=== PATIENT | female | born 1960 | race Caucasian/White ===

== ENCOUNTER 2021-09-05 12:35 | Emergency (ER) | payer OTHER, SELFPAY ==
[2021-09-05] VITALS (8 sets, daily range): BP systolic 93–164; BP diastolic 57–92; PULSE 69–78; RESP 15–21; TEMP 36.5; O2SAT 95–99; BMI 29.7
--- NOTE | 2021-09-05 14:29 | EX.ED.DYSGE1 ---
HPI History of Present Illness Chief Complaint: Wound Informant: patient Narrative Narrative: Patient is not the best informant for details of her history. However, it sounds like she has had a nonalcoholic cirrhosis for some years. She had 1 paracentesis sometime in the past. Her primary physician arranged another one that was done Wednesday. Patient states she has not seen a registered radiographer or GI doctor in a long time. She states she had the paracentesis on Wednesday and they took 8 bottles off and sent her home. I do not know if she got albumin. She felt fine. This morning she was eating breakfast in her house. She heard the water running and then realized it was her abdomen leaking fluid. She still states she feels fine. There was a note I believe in the chart about being short of breath but she denies this. EMS got a blood pressure that was low but we have done many blood pressures here and they have been normal. Patient does not have symptoms that match hypotension. The only reason she called is the fluid leaking. She has not had this before. The fluid is not leaking from paracentesis site. It is leaking from her umbilicus. No fevers or chills. [facility] Medical History Congestive heart failure (CHF) COPD (chronic obstructive pulmonary disease) Diabetes Hypertension Home Medications Omeprazole [Prilosec] 40 mg PO DAILY 02/12/14 [History Last Taken Unknown] amitriptyline 25 mg PO BID 02/12/14 [History Last Taken Unknown] aspirin 81 mg PO DAILY@79902/12/14 [History Last Taken 02/13/14] atorvastatin 80 mg PO QHS 02/12/14 [History Last Taken Unknown] folic acid 1 mg PO DAILY@79902/12/14 [History Last Taken Unknown] furosemide 20 mg PO DAILY 02/12/14 [History Last Taken Unknown] glimepiride 4 mg PO BID 02/12/14 [History Last Taken Unknown] insulin aspart U-100 [Novolog Flexpen] 0 units SUBCUT BIDCM 02/12/14 [History Last Taken Unknown] insulin glargine [Lantus SoloStar Pen] 0 units SUBCUT QHS 02/12/14 [History Last Taken Unknown] lisinopril 20 mg PO DAILY 02/12/14 [History Last Taken 02/13/14] metformin 1,000 mg PO BIDCM 02/12/14 [History Last Taken Unknown] methotrexate sodium 12.5 mg PO Q7D 02/12/14 [History Last Taken Unknown] metoprolol succinate 50 mg PO DAILY 02/12/14 [History Last Taken 02/13/14] potassium chloride 10 meq PO DAILY 02/12/14 [History Last Taken Unknown] sertraline 150 mg PO DAILY 02/12/14 [History Last Taken Unknown] zolpidem [Ambien] 10 mg PO DAILY 02/12/14 [History Last Taken Unknown] carvedilol 6.25 mg PO BID 09/05/21 [History Last Taken Unknown] clopidogrel 75 mg PO DAILY 09/05/21 [History Last Taken Unknown] ferrous sulfate 325 mg PO QODAY 09/05/21 [History Last Taken Unknown] losartan 12.5 mg PO DAILY 09/05/21 [History Last Taken Unknown] venlafaxine 75 mg PO DAILY 09/05/21 [History Last Taken Unknown] Allergy/AdvReac Type Severity Reaction Status Date / Time albuterol sulfate Allergy Unknown Verified 02/12/14 13:35 [From ProAir HFA] Iodinated Contrast Media Allergy Rash Verified 02/13/14 09:11 Social History Smoking Status: Current every day smoker tobacco type: cigarettes ROS ROS ED Constitutional Constitutional ED: Denies chills, fever(s) or subjective Eyes Eyes: Denies blurry vision ENT ENT ED: Denies rhinorrhea Cardiovascular Cardiovascular: Denies chest pain Respiratory/Chest Respiratory/Chest: Denies cough or dyspnea Gastrointestinal Gastrointestinal: Reports other Details: See history of present illness. ; Denies abdominal pain, diarrhea, nausea or vomiting Genitourinary Genitourinary ED: Denies dysuria Musculoskeletal Musculoskeletal: Denies myalgias Integumentary Denies rash Neurologic Neurologic: Denies headache(s) Endocrine Endocrinology: Denies polydipsia or polyuria Allergic/Immunologic Allergic/Immunologic ED: Denies mouth swelling or urticaria EXAM Physical Exam Const Vital Signs: 09/05/21 12:36 09/05/21 12:58 09/05/21 13:01 Temperature 97.7 F L Temperature Source Oral Pulse Rate 72 73 Respiratory Rate 20 H 21 H Blood Pressure 116/57 L 115/70 131/65 H Blood Pressure Mean 76 85 87 Pulse Ox 99 99 Oxygen Delivery Method Room Air Room Air 09/05/21 14:20 09/05/21 15:00 09/05/21 16:00 Temperature Temperature Source Pulse Rate 71 69 75 Respiratory Rate 16 19 H 19 H Blood Pressure 128/61 H 93/59 L 113/58 L Blood Pressure Mean 83 70 76 Pulse Ox 97 95 99 Oxygen Delivery Method Room Air Room Air Room Air 09/05/21 18:00 Temperature Temperature Source Pulse Rate Respiratory Rate Blood Pressure 164/92 H Blood Pressure Mean 116 Pulse Ox Oxygen Delivery Method Patient is thin. She does have a protuberant abdomen. Positive well nourished and well developed General Appearance ED: well developed HEENT Negative for trauma Eyes EOMs intact bilaterally General Eye ED: Negative for scleral icterus Neck no JVD Chest Wall inspection of chest normal Resp normal respiratory effort and clear to auscultation bilaterally Cardio regular rate and regular rhythm GI GI Narrative: Abdomen is distended. It is not at all tender. No rashes. No rebound guarding. She does have a drainage of ascitic appearing fluid from a very small approximately 1 mm opening in the umbilicus. The umbilicus is slightly protuberant but is not tender. It is not red. There is not significant breakdown. I do not see any blood in the area nor coming from the fluid. Back/Spine no CVA tenderness Extremity normal to inspection Neuro oriented x3 Sensorium / Orientation: alert Psych mental status grossly normal Skin no rashes or lesions noted and no wounds MDM MDM MDM Narrative Medical decision making narrative: I discussed the case with Dr. Montana. He has not seen her in the past. He recommend we try to get a repeat paracentesis as she still has a fair amount of fluid on board. We will give her albumin afterwards. I got blood work pending to check INR and further studies. We are pending all these results. CBC shows mildly low white count. Platelets are normal. Hemoglobin slightly low also. INR is minimally elevated at 1.3. Creatinine is 1.44. Very mild elevation of alkaline phosphatase but normal total bilirubin. We tried to get ultrasound-guided paracentesis today. But were not able to do this. It would be Wednesday before we can get this done. I notify Dr. Montana of this. He is happy to follow-up with the patient. However, before he can order the ultrasound guided paracentesis he has to see the patient. She may be able to get in faster if she contacts the same physician who arranged this for Wednesday. We recommend she contact her primary and have a repeat paracentesis beginning of the week. She is still draining from her small hole in the umbilicus. But she has no symptoms or discomfort. We explained that this will keep draining. I cannot suture this. That would cause likely greater tearing of the wound. Lab Data Attestation: I reviewed the patient's lab results. Labs: Laboratory Results - last 24 hr 09/05/21 09/05/21 09/05/21 14:30 14:30 14:30 WBC 3.8 L RBC 3.66 L Hgb 9.4 L Hct 29.2 L MCV 79.8 L MCH 25.7 L MCHC 32.2 RDW Std Deviation 46.7 H RDW Coeff of Elzbieta 16.4 H Plt Count 172 MPV 9.2 Immature Gran % (Auto) 0.300 Neut % (Auto) 70.8 H Lymph % (Auto) 8.5 L [place] % (Auto) 9.8 Eos % (Auto) 9.8 H Baso % (Auto) 0.8 Absolute Neuts (auto) 2.7 Absolute Lymphs (auto) 0.32 L Nucleated RBC % 0 Differential Comment SEE COMMENT Diff Path Review May foll Platelet Estimate ADEQUATE RBC Morphology N CHROM Hypochromasia 1+ Anisocytosis RARE Microcytosis 1+ PT 15.3 H INR 1.3 Sodium 137 Potassium 3.5 Chloride 103 Carbon Dioxide 29.0 Anion Gap 5 BUN 25 H Creatinine 1.44 H Estim Creat Clear Calc 29.10 Est GFR (MDRD) Af Amer 47 L Est GFR (MDRD) Non-Af 39 L BUN/Creatinine Ratio 17.4 Glucose 247 H Calcium 8.1 L Total Bilirubin 0.30 AST 15 ALT 10 L Alkaline Phosphatase 194 H Total Protein 5.7 L Albumin 1.7 L Globulin 4.0 Albumin/Globulin Ratio 0.4 L Discharge Plan Triage Chief Complaint: Wound ED Provider: Jose Espinoza Dx/Rx/DC Orders Clinical Impression: Ascites Instructions: ED Ascites Prescriptions: No Action metformin 1,000 MG tablet 1,000 mg PO BIDCM RF: 0 aspirin 81 MG tablet,chewable 81 mg PO DAILY@0800 RF: 0 folic acid 1 MG tablet 1 mg PO DAILY@0800 RF: 0 furosemide 20 MG tablet 20 mg PO DAILY RF: 0 potassium chloride 10 MEQ tablet 10 meq PO DAILY RF: 0 metoprolol succinate 50 MG tablet 50 mg PO DAILY RF: 0 lisinopril 20 MG tablet 20 mg PO DAILY RF: 0 sertraline 100 MG tablet 150 mg PO DAILY RF: 0 methotrexate sodium 2.5 MG tablet 12.5 mg PO Q7D RF: 0 glimepiride 4 MG tablet 4 mg PO BID RF: 0 zolpidem [Ambien] 10 MG tablet 10 mg PO DAILY RF: 0 atorvastatin 80 MG tablet 80 mg PO QHS RF: 0 amitriptyline 25 MG tablet 25 mg PO BID RF: 0 insulin aspart U-100 [Novolog Flexpen U-100 Insulin] 100 UNITS/ML Flexpen 0 units subcut BIDCM RF: 0 insulin glargine [Lantus Solostar U-100 Insulin] 100 UNITS/ML Pen 0 units subcut QHS RF: 0 Omeprazole [Prilosec] 40 MG capsule 40 mg PO DAILY RF: 0 carvedilol 6.25 mg tablet 6.25 mg PO BID RF: 0 venlafaxine 75 mg capsule,extended release 24hr 75 mg PO DAILY RF: 0 clopidogrel 75 mg tablet 75 mg PO DAILY RF: 0 ferrous sulfate 325 mg (65 mg iron) tablet 325 mg PO QODAY RF: 0 losartan 25 mg tablet 12.5 mg PO DAILY RF: 0 Primary Care Provider: Amy Reyes Referrals: Amy Reyes DO [Primary Care Provider] - As soon as possible Alan Montana DO [STAFF PHYSICIAN] - As soon as possible Activity Restrictions/Additional Instructions: Call your family doctor Wednesday to get scheduled for repeat paracentesis as soon as possible. We recommend receiving albumin after the procedure. Disposition Disposition: Home, Self Care
[2021-09-05 15:02] LABS: International Normalized Ratio 1.3; Prothrombin Time (Protime)PT. 15.3 SECONDS (11.7-14.9)
[2021-09-05 15:07] LABS: ALB/GLOB Ratio 0.4 RATIO (0.9-2.4); AST(SGOT) 15 U/L (15-37); Alanine Aminotransfer ALT/SGPT 10 U/L (13-56); Albumin, Serum 1.7 g/dL (3.2-5.0); Alkaline Phosphatase 194 U/L (45-117); Anion Gap 5 (5-15); BUN 25 mg/dL (7-18); BUN/Creat Ratio 17.4 RATIO (10-20); Calcium,Total 8.1 mg/dL (8.5-10.1); Chloride 103 mmol/L (98-107); Creatinine, Serum 1.44 mg/dL (0.55-1.02); EST Glomerular Filtration Rate 39 mL/min (>60); Est Glom Filt Rate - Afr Amer 47 mL/min (>60); Glucose 247 mg/dL (74-106); Potassium 3.5 mmol/L (3.5-5.1); Protein, Total 5.7 g/dL (6.4-8.2); Sodium Level 137 mmol/L (136-145)
[2021-09-05 15:32] LABS: Absolute Lymphocyte Count 0.32 X10^3/uL (0.83-4.51); Absolute Neutrophil Count 2.7 X10^3/uL (2.0-7.7); Basophil# 0.03 X10^3/uL; Basophil% 0.8 % (0-1); Eosinophil# 0.37 X10^3/uL; Eosinophils% 9.8 % (0-5); Hematocrit 29.2 % (37-47); Hemoglobin 9.4 g/dL (12.0-15.0); Lymphocyte # 0.32 X10^3/ul (0.83-4.51); Lymphocyte % 8.5 % (19-41); Mean Corp Hgb Conc 32.2 g/dL (32-36); Mean Corpuscular Hgb 25.7 pg (27.0-32.0); Mean Corpuscular Volume 79.8 fL (81-99); Mean Platelet Vol. 9.2 fl (6.2-12.0); Monocyte# 0.37 X10^3/uL; Monocyte% 9.8 % (0-10); NRBC Flagged by Analyzer 0 % (0-5); Neutrophil # 2.67 X10^3/uL (2.7-7.7); Neutrophil % 70.8 % (47-70); POSITIVE DIFFERENTIAL YES; Platelet Count 172 K/mm3 (150-450); RBC Distribution Width CV 16.4 % (11.6-14.6); RBC Distribution Width SD 46.7 fl (35.1-43.9); Red Blood Count 3.66 M/mm3 (4.2-5.4); White Blood Count 3.8 K/mm3 (4.4-11.0)
[2021-09-05 15:33] LABS: Differential Indicated SCAN CRITERIA MET
[2021-09-05 15:55] LABS: Anisocytosis RARE; Hypochromasia 1+; Microcytosis 1+; Platelet Estimate ADEQUATE (ADEQ); Red Cell Morphology N CHROM NORMAL (NORM C&C)
[2021-09-05] MEDS: Albumin Human 25% (100 mL) 25 GM/100 ML BAG IV (17:15)
[2021-09-09 10:14] LABS: Pathologist Review Reviewed
== END 2021-09-05 19:22 | disposition home or self-care (01) ==
PROVIDERS: Emergency Provider Emergency Medicine; PCP Family Medicine; Visit Provider Emergency Medicine
DX: R18.8 Other ascites (principal); K74.60 Unspecified cirrhosis of liver; J44.9 Chronic obstructive pulmonary disease, unspecified; I11.0 Hypertensive heart disease with heart failure; I50.9 Heart failure, unspecified; E11.9 Type 2 diabetes mellitus without complications; Z79.4 Long term (current) use of insulin; F17.210 Nicotine dependence, cigarettes, uncomplicated; Z79.02 Long term (current) use of antithrombotics/antiplatelets; Z79.82 Long term (current) use of aspirin; Z79.84 Long term (current) use of oral hypoglycemic drugs; Z79.899 Other long term (current) drug therapy
CPT/HCPCS: 80048; 80053; 85025; 85610; 96361; 96365; 96366; 99285; J7040; P9047; A4216

== ENCOUNTER 2021-09-09 11:43 | Inpatient (IN) | payer MEDICARE, OTHER, SELFPAY ==
[2021-09-09] VITALS (11 sets, daily range): BP systolic 77–100; BP diastolic 40–58; PULSE 72–82; RESP 16–24; TEMP 36.2–37.3; O2SAT 97–100; BMI 21.9; BMI 22.1
--- NOTE | 2021-09-09 12:18 | EX.ED.DYSGE1 ---
HPI History of Present Illness Chief Complaint: Hypotension Informant: patient Narrative Narrative: Patient presents with low blood pressure. Evidently, physical therapy showed at her house for routine therapy. They noticed that she was leaking ascitic fluid through her umbilicus. They checked blood pressure. It was low so they referred her back in here. Patient states she feels okay. Her only complaint is that she would like some eggs to eat for breakfast. She has not yet eaten. She admits that the fluids been draining all weekend but it seems to be less. She has not had follow-up paracentesis. She denies fevers or chills. She states her abdomen has no pain at all. It had been a little sore when it was distended but it does not hurt now. She denies blood in the fluid. [facility] Medical History Cirrhosis Congestive heart failure (CHF) COPD (chronic obstructive pulmonary disease) Diabetes History of abdominal paracentesis Hypertension Home Medications aspirin 81 mg PO DAILY@0800 02/12/14 [History Last Taken 09/08/21] furosemide 20 mg PO DAILY 02/12/14 [History Last Taken Unknown] carvedilol 6.25 mg PO BID 09/05/21 [History Last Taken 09/08/21] clopidogrel 75 mg PO DAILY 09/05/21 [History Last Taken 09/08/21] ferrous sulfate 325 mg PO QODAY 09/05/21 [History Last Taken 09/07/21] losartan 12.5 mg PO DAILY 09/05/21 [History Last Taken 09/08/21] venlafaxine 75 mg PO DAILY 09/05/21 [History Last Taken 09/08/21] cyanocobalamin (vitamin B-12) 1,000 mcg PO DAILY 09/09/21 [History Last Taken 09/08/21] melatonin 3 mg PO QHS 09/09/21 [History Last Taken 09/08/21] pantoprazole 40 mg PO DAILY 09/09/21 [History Last Taken 09/08/21] quetiapine 50 mg PO QHS 09/09/21 [History Last Taken 09/08/21] spironolactone 25 mg PO DAILY 09/09/21 [History Last Taken 09/08/21] trazodone 100 mg PO QHS 09/09/21 [History Last Taken 09/08/21] Allergy/AdvReac Type Severity Reaction Status Date / Time albuterol sulfate Allergy Unknown Verified 09/09/21 11:44 [From ProAir HFA] Iodinated Contrast Media Allergy Rash Verified 09/09/21 11:44 Family History (Updated 09/09/21 @ 13:[address] Kasi Ahmadi DO) Father Liver disease Social History (Updated 09/09/21 @ 13:[address] Kasi Ahmadi DO) Smoking Status: Current every day smoker tobacco type: cigarettes alcohol intake: never substance use type: does not use ROS ROS ED Constitutional Constitutional ED: Denies chills or fever(s) Eyes Eyes: Denies blurry vision ENT ENT ED: Denies rhinorrhea Cardiovascular Cardiovascular: Denies chest pain or palpitations Respiratory/Chest Respiratory/Chest: Denies cough or dyspnea Gastrointestinal Gastrointestinal: Reports other Details: Drainage of ascitic fluid through umbilicus which has currently stopped. ; Denies abdominal pain, nausea or vomiting Genitourinary Genitourinary ED: Denies dysuria Musculoskeletal Musculoskeletal: Denies back pain Integumentary Denies rash Neurologic Neurologic: Denies headache(s) Endocrine Endocrinology: Denies polydipsia or polyuria Allergic/Immunologic Allergic/Immunologic ED: Denies urticaria EXAM Physical Exam Const Vital Signs: 09/09/21 11:44 09/09/21 11:48 09/09/21 12:59 Temperature 99.2 F H Temperature Source Temporal Pulse Rate 72 76 Respiratory Rate 24 H 20 H Blood Pressure 83/58 L 84/54 L Blood Pressure Mean 66 64 Pulse Ox 99 100 Oxygen Delivery Method Room Air Room Air Room Air 09/09/21 13:04 09/09/21 13:37 Temperature 97.1 F L Temperature Source Temporal Pulse Rate 77 Respiratory Rate 16 Blood Pressure 77/49 L 77/54 L Blood Pressure Mean 58 61 Pulse Ox 100 Oxygen Delivery Method Room Air Positive well nourished and well developed Constitutional Narrative: Patient's blood pressure is a bit low. But she has a mean arterial pressure in the 60s. She is awake alert and appropriate. She does overall look a little bit more pale than she appeared the other day though. However she denies any black or bloody stools. She has not vomited. General Appearance ED: well developed and NAD HEENT Negative for trauma Eyes General Eye ED: Yes pale conjunctiva; Negative for scleral icterus Neck no JVD Chest Wall inspection of chest normal Resp normal respiratory effort and clear to auscultation bilaterally Effort and Inspection: Negative for pain with movement Auscultation: Negative for rales, rhonchi or wheezes Cardio regular rate and regular rhythm GI normal to inspection, nondistended, normoactive bowel sounds GI Narrative: Patient has gauze on him abdomen. However, when I take these down she is currently not leaking fluid. She states this is about the first time. Certainly this may change if she gets up and walks around. I did press on the abdomen. There is no tenderness nor does that encourage fluid to come out. There is no erythema around what was the drainage site. My suspicion is that the size of abdomen has decreased in the fluid is decreasing. Her abdomen does look significantly less distended than when I saw her a few days ago. There is a marked difference in girth. Palpation: soft Back/Spine no CVA tenderness Extremity normal to inspection Neuro oriented x3 Sensorium / Orientation: alert Psych mental status grossly normal Skin no rashes or lesions noted MDM MDM MDM Narrative Medical decision making narrative: Patient is getting some IV fluids here. We will repeat blood work. I want to check status of electrolytes, renal function hemoglobin etc. We will then contact GI. According to the weights from the other day today, the patient has lost 18 kg in weight. I discussed the case with Dr. [place]. Our concern is that the patient has worsening renal function along with significant ascitic fluid loss, weight loss and low blood pressure. However, patient is awake alert and really not symptomatic with this. She is actually eating lunch when I go in the room. Her mean blood pressure is just about 60 for right now. We will get her midodrine, albumin and octreotide as discussed. She will be admitted. Case was discussed with hospitalist. Patient has risk for hepatorenal syndrome development. Hemoglobin is slightly lower. However, she did get IV fluids by EMS and here. Creatinine is slightly worse. Lactic acid is normal despite the blood pressure. Lab Data Attestation: I reviewed the patient's lab results. Labs: Laboratory Results - last 24 hr 09/09/21 09/09/21 09/09/21 11:50 11:50 11:50 WBC 8.4 RBC 3.37 L Hgb 8.3 L Hct 26.1 L MCV 77.4 L MCH 24.6 L MCHC 31.8 L RDW Std Deviation 46.1 H RDW Coeff of Elzbieta 16.4 H Plt Count 180 MPV 9.8 Immature Gran % (Auto) 0.500 Neut % (Auto) 88.1 H Lymph % (Auto) 2.3 L [place] % (Auto) 6.0 Eos % (Auto) 3.0 Baso % (Auto) 0.1 Absolute Neuts (auto) 7.4 Absolute Lymphs (auto) 0.19 L Nucleated RBC % 0 Sodium 133 L Potassium 3.5 Chloride 99 Carbon Dioxide 27.0 Anion Gap 7 BUN 53 H Creatinine 1.86 H Estim Creat Clear Calc 22.53 Est GFR (MDRD) Af Amer 35 L Est GFR (MDRD) Non-Af 29 L BUN/Creatinine Ratio 28.5 H Glucose 135 H Lactic Acid 1.6 Calcium 7.2 L Total Bilirubin 0.80 AST 11 L ALT 9 L Alkaline Phosphatase 158 H Total Protein 4.8 L Albumin 1.3 L Globulin 3.5 Albumin/Globulin Ratio 0.4 L Discharge Plan Triage Chief Complaint: Hypotension ED Provider: Jose Espinoza Dx/Rx/DC Orders Clinical Impression: Ascites, Acute kidney injury, Acute hypotension, Abnormal weight loss Prescriptions: No Action aspirin 81 MG tablet,chewable 81 mg PO DAILY@0800 RF: 0 furosemide 20 MG tablet 20 mg PO DAILY RF: 0 carvedilol 6.25 mg tablet 6.25 mg PO BID RF: 0 venlafaxine 75 mg capsule,extended release 24hr 75 mg PO DAILY RF: 0 clopidogrel 75 mg tablet 75 mg PO DAILY RF: 0 ferrous sulfate 325 mg (65 mg iron) tablet 325 mg PO QODAY RF: 0 losartan 25 mg tablet 12.5 mg PO DAILY RF: 0 cyanocobalamin (vitamin B-12) 1,000 mcg tablet 1,000 mcg PO DAILY RF: 0 melatonin 3 mg tablet 3 mg PO QHS RF: 0 spironolactone 25 mg tablet 25 mg PO DAILY RF: 0 trazodone 100 mg tablet 100 mg PO QHS RF: 0 pantoprazole 40 mg tablet,delayed release (DR/EC) 40 mg PO DAILY RF: 0 quetiapine 50 mg tablet 50 mg PO QHS RF: 0 Primary Care Provider: Amy Reyes Referrals: Amy Reyes DO [Primary Care Provider] - Disposition Disposition: Acute Care Hospital [facility]
[2021-09-09 12:22] LABS: Absolute Lymphocyte Count 0.19 X10^3/uL (0.83-4.51); Absolute Neutrophil Count 7.4 X10^3/uL (2.0-7.7); Basophil# 0.01 X10^3/uL; Basophil% 0.1 % (0-1); Eosinophil# 0.25 X10^3/uL; Hematocrit 26.1 % (37-47); Hemoglobin 8.3 g/dL (12.0-15.0); Lymphocyte # 0.19 X10^3/ul (0.83-4.51); Lymphocyte % 2.3 % (19-41); Mean Corp Hgb Conc 31.8 g/dL (32-36); Mean Corpuscular Hgb 24.6 pg (27.0-32.0); Mean Corpuscular Volume 77.4 fL (81-99); Mean Platelet Vol. 9.8 fl (6.2-12.0); NRBC Flagged by Analyzer 0 % (0-5); Neutrophil % 88.1 % (47-70); POSITIVE DIFFERENTIAL YES; Platelet Count 180 K/mm3 (150-450); RBC Distribution Width CV 16.4 % (11.6-14.6); RBC Distribution Width SD 46.1 fl (35.1-43.9); Red Blood Count 3.37 M/mm3 (4.2-5.4); White Blood Count 8.4 K/mm3 (4.4-11.0)
[2021-09-09 12:24] LABS: Differential Indicated SCAN CRITERIA MET
[2021-09-09 12:42] LABS: ALB/GLOB Ratio 0.4 RATIO (0.9-2.4); AST(SGOT) 11 U/L (15-37); Alanine Aminotransfer ALT/SGPT 9 U/L (13-56); Albumin, Serum 1.3 g/dL (3.2-5.0); Alkaline Phosphatase 158 U/L (45-117); Anion Gap 7 (5-15); BUN 53 mg/dL (7-18); BUN/Creat Ratio 28.5 RATIO (10-20); Calcium,Total 7.2 mg/dL (8.5-10.1); Chloride 99 mmol/L (98-107); Creatinine, Serum 1.86 mg/dL (0.55-1.02); EST Glomerular Filtration Rate 29 mL/min (>60); Est Glom Filt Rate - Afr Amer 35 mL/min (>60); Estimated Creatinine Clearance 22.53 ml/min; Globulin 3.5 g/dL (2.2-4.2); Glucose 135 mg/dL (74-106); Potassium 3.5 mmol/L (3.5-5.1); Protein, Total 4.8 g/dL (6.4-8.2); Sodium Level 133 mmol/L (136-145)
[2021-09-09 12:45] LABS: Lactic Acid 1.6 mmol/L (0.4-1.9)
[2021-09-09] MEDS: Midodrine HCl 5 MG Tablet 10 MG PO ×2 (13:25→17:11)
--- NOTE | 2021-09-09 13:25 | NURSING ---
DR MATTEO AGUILERA
--- NOTE | 2021-09-09 13:33 | NURSING ---
PCU MATTEO HYPOTENSION, SHELIA, ASCITES
--- NOTE | 2021-09-09 13:51 | HP.PCM.HOS_ITS ---
HPI - General General Date of Admission: 09/09/21 Date of Service: 09/09/21 Chief Complaint: hypotension. umbilical leak HPI Narrative LIBBY RAND, is a 60 F who presents presents from home after being found by home health care having fluid leaking from her abdomen. Patient was seen on the 26 in the emergency room and previously had a paracentesis done outside hospital. At that time she heard the faucet running but is actually leaking out of her abdomen. She was brought in the hospital stable and sent home. But here she was hypotensive but otherwise awake alert. Dr. Montana, of gastroenterology was contacted recommended octreotide, albumin and midodrine to which she received all of those in the emergency room. Patient MAP is around 65 and patient will be admitted to the progressive care unit. Patient has seen a sewage treatment plant operator in the past but he was at [facility] and is since retired. She has not seen gastro physician since then. [facility] Medical History Cirrhosis Congestive heart failure (CHF) COPD (chronic obstructive pulmonary disease) Diabetes History of abdominal paracentesis Hypertension Home Medications aspirin 81 mg PO DAILY@0800 02/12/14 [History Last Taken 02/13/14] furosemide 20 mg PO DAILY 02/12/14 [History Last Taken Unknown] carvedilol 6.25 mg PO BID 09/05/21 [History Last Taken Unknown] clopidogrel 75 mg PO DAILY 09/05/21 [History Last Taken Unknown] ferrous sulfate 325 mg PO QODAY 09/05/21 [History Last Taken Unknown] losartan 12.5 mg PO DAILY 09/05/21 [History Last Taken Unknown] venlafaxine 75 mg PO DAILY 09/05/21 [History Last Taken Unknown] cyanocobalamin (vitamin B-12) 1,000 mcg PO DAILY 09/09/21 [History Last Taken 09/08/21] melatonin 3 mg PO QHS 09/09/21 [History Last Taken 09/08/21] pantoprazole 40 mg PO DAILY 09/09/21 [History Last Taken 09/08/21] quetiapine 50 mg PO QHS 09/09/21 [History Last Taken 09/08/21] spironolactone 25 mg PO DAILY 09/09/21 [History Last Taken 09/08/21] trazodone 100 mg PO QHS 09/09/21 [History Last Taken 09/08/21] Allergy/AdvReac Type Severity Reaction Status Date / Time albuterol sulfate Allergy Unknown Verified 09/09/21 11:44 [From ProAir HFA] Iodinated Contrast Media Allergy Rash Verified 09/09/21 11:44 Family History (Updated 09/09/21 @ 13:[address] Kais Ahmadi DO) Father Liver disease Social History (Updated 09/09/21 @ 13:[address] Kasi Ahmadi DO) Smoking Status: Current every day smoker tobacco type: cigarettes alcohol intake: never substance use type: does not use ROS ROS Narrative Patient notes some blood in her ascitic fluid that was coming out of her umbilicus. Denies any melena nor hematochezia. Patient has lost weight re cently. She states that she does have a good appetite despite everything. All review of systems were negative except as mentioned above in the history of present illness and the other review of systems. Vital Signs Vital Signs Vital Signs: 09/09/21 11:44 09/09/21 11:48 09/09/21 12:59 Temperature 37.3 C H Temperature Source Temporal Pulse Rate 72 76 Respiratory Rate 24 H 20 H Blood Pressure 83/58 L 84/54 L Blood Pressure Mean 66 64 Pulse Ox 99 100 Oxygen Delivery Method Room Air Room Air Room Air 09/09/21 13:04 09/09/21 13:37 Temperature 36.2 C L Temperature Source Temporal Pulse Rate 77 Respiratory Rate 16 Blood Pressure 77/49 L 77/54 L Blood Pressure Mean 58 61 Pulse Ox 100 Oxygen Delivery Method Room Air Weight Weight: 51 kg Body Mass Index (BMI) 21.9 Physical Exam Const alert and no apparent distress General Appearance: cooperative HEENT normocephalic, head/scalp atraumatic, hearing grossly normal bilaterally and moist oral mucous membranes Eyes Eyes Narrative: -[id number]- Neck no lymphadenopathy Neck Narrative: No thyromegaly Resp normal respiratory effort, no retractions, no use of accessory muscles and clear to auscultation bilaterally Cardio regular rate, regular rhythm, S1 normal heart sound and S2 normal heart sound GI normal to inspection, nondistended, normoactive bowel sounds and soft to palpation GI Narrative: Slightly distended. Some fluid able to be expressed from the umbilicus. Extremity normal to inspection Extremity Narrative: Trace lower extremity edema Skin Skin Narrative: Superficial wounds on the knuckles of her toes bilaterally. No palmar erythema Neuro Neuro Narrative: No asterixis Sensorium / Orientation: awake and alert Psych affect normal Results Lab / Micro Data Result Diagrams: 09/09/21 11:50 09/09/21 11:50 Labs: Laboratory Results - last 24 hr 09/09/21 11:50: WBC 8.4, RBC 3.37 L, Hgb 8.3 L, Hct 26.1 L, MCV 77.4 L, MCH 24.6 L, MCHC 31.8 L, RDW Std Deviation 46.1 H, RDW Coeff of Elzbieta 16.4 H, Plt Count 180, MPV 9.8, Immature Gran % (Auto) 0.500, Neut % (Auto) 88.1 H, Lymph % (Auto) 2.3 L, [place] % (Auto) 6.0, Eos % (Auto) 3.0, Baso % (Auto) 0.1, Absolute Neuts (auto) 7.4, Absolute Lymphs (auto) 0.19 L, Nucleated RBC % 0 09/09/21 11:50: Sodium 133 L, Potassium 3.5, Chloride 99, Carbon Dioxide 27.0, Anion Gap 7, BUN 53 H, Creatinine 1.86 H, Estim Creat Clear Calc 22.53, Est GFR (MDRD) Af Amer 35 L, Est GFR (MDRD) Non-Af 29 L, BUN/Creatinine Ratio 28.5 H, Glucose 135 H, Calcium 7.2 L, Total Bilirubin 0.80, AST 11 L, ALT 9 L, Alkaline Phosphatase 158 H, Total Protein 4.8 L, Albumin 1.3 L, Globulin 3.5, Albumin/Globulin Ratio 0.4 L 09/09/21 11:50: Lactic Acid 1.6 Assessment & Plan Assessment/Plan (1) Ascites: QUALIFIERS: Ascites type: other type Qualified Code(s): R18.8 - Other ascites (2) Anemia: QUALIFIERS: Anemia type: unspecified type Qualified Code(s): D64.9 - Anemia, unspecified (3) SHELIA (acute kidney injury): (4) Hypotension: PLAN: 1. Hypotension Improved Likely due to intravascular depletion Not given fluids as patient is overall better likely has low baseline blood pressures 2. Possible hepatorenal syndrome Creatinine is elevated Is higher than it was 2 days ago at 1.44. Is unclear what the patient's b aseline is but from 2013 of 0.8. ER spoke with Dr. Montana who recommended octreotide, albumin and midodrine and will continue with those medications. Patient will be on octreotide drip plus albumin 25 g every 6 hours and midodrine every 8 hours. Midodrine could be potentially increased up to 15 mg. We will start off at 10mg 3 times daily. 3. Acute kidney injury As above Holding off on additional IV fluids at this point in time given the patient's ascites 4. Anemia Appears to be chronic No need for transfusions at this time 5. 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 She states that she has been biopsied in the remote past. We will try to get records from [facility] 6. VTE prophylaxis with enoxaparin 7. COVID-19 vaccination status: Patient has been vaccinated for COVID-19. 8. CODE STATUS: Addressed with patient. Patient wished to be DNR Comfort Care arrest. She is okay with short-term intubation. Charges/Coding Visit Charges Inpatient E&M: 20875 Init Hosp L3
[2021-09-09] MEDS: Albumin Human 25% (100 mL) 25 GM/100 ML BAG IV ×2 (14:12→20:11)
[2021-09-09 17:21] LABS: Bedside Glucose 155 mg/dL (70-110)
[2021-09-09] MEDS: Insulin Lispro 100 UNIT/ML INSULN.PEN SC (17:24)
--- NOTE | 2021-09-09 17:49 | CON.PCM.GI_ITS ---
HPI Consult Data Date of Consult: 09/09/21 HPI Narrative HPI Narrative: LIBBY RAND, is a 60 F who presents presents from home after undergoing a large-volume paracentesis and having continued foot pain from abdomen. 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 She has no history of SBP. She underwent paracentesis at outside facility and came to the hospital several days ago with worsening leaking of fluid. In the ED it was felt that she was safe to go home so she was given albumin. Her physical therapist that came by her house had noticed that she had a lot of fluid leaking from her abdomen. She was sent to the ED for evaluation. When she got to the ED it was noted that her weight was down 18 pounds from previously. She had been leaking fluid the entire time. She had not had any abdominal pain so she did not want to come back to the hospital. In the ED she was discovered to be hypotensive with a systolic blood pressure of 85. She was also noted to have acute renal failure. I requested that she be placed on midodrine, octreotide and started on scheduled albumin for possible hepatorenal syndrome. PFSH Medical History Anxiety Cirrhosis Congestive heart failure (CHF) COPD (chronic obstructive pulmonary disease) Depression Diabetes History of abdominal paracentesis Hypertension Kidney stones Myocardial infarct Smoker Home Medications aspirin 81 mg PO DAILY@0800 02/12/14 [History Last Taken 09/08/21] furosemide 20 mg PO DAILY 02/12/14 [History Last Taken Unknown] carvedilol 6.25 mg PO BID 09/05/21 [History Last Taken 09/08/21] clopidogrel 75 mg PO DAILY 09/05/21 [History Last Taken 09/08/21] ferrous sulfate 325 mg PO QODAY 09/05/21 [History Last Taken 09/07/21] losartan 12.5 mg PO DAILY 09/05/21 [History Last Taken 09/08/21] venlafaxine 75 mg PO DAILY 09/05/21 [History Last Taken 09/08/21] cyanocobalamin (vitamin B-12) 1,000 mcg PO DAILY 09/09/21 [History Last Taken 09/08/21] melatonin 3 mg PO QHS 09/09/21 [History Last Taken 09/08/21] pantoprazole 40 mg PO DAILY 09/09/21 [History Last Taken 09/08/21] quetiapine 50 mg PO QHS 09/09/21 [History Last Taken 09/08/21] spironolactone 25 mg PO DAILY 09/09/21 [History Last Taken 09/08/21] trazodone 100 mg PO QHS 09/09/21 [History Last Taken 09/08/21] Allergy/AdvReac Type Severity Reaction Status Date / Time albuterol sulfate Allergy Unknown Verified 09/09/21 11:44 [From ProAir HFA] Iodinated Contrast Media Allergy Rash Verified 09/09/21 11:44 Family History (Updated 09/09/21 @ 13:[address] Kasi Ahmadi DO) Father Liver disease Social History (Updated 09/09/21 @ 13:[address] Kasi Ahmadi DO) Smoking Status: Current every day smoker tobacco type: cigarettes alcohol intake: never substance use type: does not use ROS Review of Systems ROS Unobtainable: other Constitutional Constitutional: Denies fatigue, fever(s), poor appetite, weight gain or weight loss ENT HEENT: Denies mouth lesions Cardiovascular Cardiovascular: Denies abdominal bloating, abdominal edema or abdominal pain Respiratory/Chest Respiratory/Chest: Denies change in mental status, change in phlegm color, chest congestion or chest tightness Gastrointestinal Gastrointestinal: Denies belching, bloating, change in bowel habits, change in stool character, chewing difficulty, coffee ground emesis, constipation, cramping, diarrhea, dyspepsia, dysphagia, early satiety, excessive flatus, fecal incontinence, heartburn, hematemesis, hematochezia, hemorrhoids, loose stools, melena, nausea, odynophagia, rectal bleeding, tenesmus, vomiting or weight changes Genitourinary Genitourinary: Denies abdominal discomfort, burning urination or itching Musculoskeletal Musculoskeletal: Reports as per HPI; Denies muscle weakness or myalgias Integumentary Integumentary: Denies jaundice Neurologic Neurologic: Denies lack of coordination or weakness Psychiatric Psychiatric: Denies confusion, depression, memory loss, mood swings, paranoia or suicidal ideation Endocrine Endocrinology: Denies systems reviewed and no addt'l complaints, except as documented Hematologic/Lymphatic Hematologic/Lymphatic: Denies anemia, easy bleeding, easy bruising or lymphadenopathy Allergic/Immunologic Allergic/Immunologic: Denies systems reviewed and no addt'l complaints, except as documented Physical Exam Const alert General Appearance: cooperative Orientation / Consciousness: oriented to person HEENT hearing grossly normal bilaterally Head and Scalp: normal to inspection Face and Sinus: face symmetric Nose: external nose normal Mouth: oral and palatal mucosa normal Eyes conjunctivae normal General Eye: normal appearance of both eyes Neck full ROM General: normal visual inspection Lymph Lymphatic: no lymphadenopathy noted Chest inspection of chest normal and palpation of chest normal Chest: symmetrical chest wall rise Resp normal respiratory effort Effort and Inspection: able to speak in complete sentences Cardio regular rate GI non-distended Percussion: normal to percussion Rectal Exam: deferred Neuro Speech: speech normal Gait (Neuro): normal gait Lab / Micro Data Result Diagrams: 09/09/21 11:50 09/09/21 11:50 Labs: Laboratory Results - last 24 hr 09/09/21 11:50: WBC 8.4, RBC 3.37 L, Hgb 8.3 L, Hct 26.1 L, MCV 77.4 L, MCH 24.6 L, MCHC 31.8 L, RDW Std Deviation 46.1 H, RDW Coeff of Elzbieta 16.4 H, Plt Count 180, MPV 9.8, Immature Gran % (Auto) 0.500, Neut % (Auto) 88.1 H, Lymph % (Auto) 2.3 L, [place] % (Auto) 6.0, Eos % (Auto) 3.0, Baso % (Auto) 0.1, Absolute Neuts (auto) 7.4, Absolute Lymphs (auto) 0.19 L, Nucleated RBC % 0 09/09/21 11:50: Sodium 133 L, Potassium 3.5, Chloride 99, Carbon Dioxide 27.0, Anion Gap 7, BUN 53 H, Creatinine 1.86 H, Estim Creat Clear Calc 22.53, Est GFR (MDRD) Af Amer 35 L, Est GFR (MDRD) Non-Af 29 L, BUN/Creatinine Ratio 28.5 H, Glucose 135 H, Calcium 7.2 L, Total Bilirubin 0.80, AST 11 L, ALT 9 L, Alkaline Phosphatase 158 H, Total Protein 4.8 L, Albumin 1.3 L, Globulin 3.5, Albumin/Globulin Ratio 0.4 L 09/09/21 11:50: Lactic Acid 1.6 09/09/21 17:13: POC Glucose 155 H Assessment & Plan Assessment/Plan (1) Ascites: QUALIFIERS: Ascites type: other type Qualified Code(s): R18.8 - Other ascites PLAN: Ascites. Her abdomen at this time is not distended as it has been passively leaking out. The fluid was not check for SBP or SAG gradient was not done to determine if this was from heart failure or all from cirrhosis of the liver from Mae. Recommend to check a BMP and a CT scan abdomen pelvis. (2) Anemia: QUALIFIERS: Anemia type: unspecified type Qualified Code(s): D64.9 - Anemia, unspecified PLAN: She has never undergone upper endoscopy to evaluate for varices. She may need this done. (3) SHELIA (acute kidney injury): PLAN: The differential diagnosis for acute kidney injury would be hepatorenal syndrome type II, prerenal azotemia secondary to loss of ascitic fl uid. Recommend midodrine, octreotide and albumin. If it does not improve would give a 500 cc bolus of sodium chloride and check a urine sodium. Charges/Coding Visit Charges Inpatient E&M: 69271 Init Hosp L3
[2021-09-09] MEDS: 0.9% Saline Lock 10 ML Syringe IV (20:45)
[2021-09-09] MEDS: QUEtiapine 25 MG Tablet 50 MG PO (20:53)
[2021-09-09] MEDS: traZODone 100 MG Tablet PO (20:53)
[2021-09-09 21:16] LABS: Bedside Glucose 232 mg/dL (70-110)
[2021-09-10] VITALS (7 sets, daily range): BP systolic 97–110; BP diastolic 52–65; PULSE 84–95; RESP 16–18; TEMP 36.9–37.1; O2SAT 97–99
[2021-09-10] MEDS: Albumin Human 25% (100 mL) 25 GM/100 ML BAG IV ×3 (01:50→13:22)
[2021-09-10] MEDS: 0.9% Saline Lock 10 ML Syringe IV ×4 (01:50→10:55)
[2021-09-10 05:48] LABS: Absolute Lymphocyte Count 0.23 X10^3/uL (0.83-4.51); Absolute Neutrophil Count 6.5 X10^3/uL (2.0-7.7); Basophil# 0.01 X10^3/uL; Basophil% 0.1 % (0-1); Eosinophil# 0.25 X10^3/uL; Eosinophils% 3.4 % (0-5); Hematocrit 25.7 % (37-47); Hemoglobin 8.3 g/dL (12.0-15.0); Lymphocyte # 0.23 X10^3/ul (0.83-4.51); Lymphocyte % 3.1 % (19-41); Mean Corp Hgb Conc 32.3 g/dL (32-36); Mean Corpuscular Hgb 25.1 pg (27.0-32.0); Mean Corpuscular Volume 77.6 fL (81-99); Mean Platelet Vol. 9.7 fl (6.2-12.0); Monocyte% 5.4 % (0-10); NRBC Flagged by Analyzer 0 % (0-5); Neutrophil # 6.47 X10^3/uL (2.7-7.7); Neutrophil % 87.2 % (47-70); POSITIVE DIFFERENTIAL YES; Platelet Count 171 K/mm3 (150-450); RBC Distribution Width CV 15.9 % (11.6-14.6); RBC Distribution Width SD 44.8 fl (35.1-43.9); Red Blood Count 3.31 M/mm3 (4.2-5.4); White Blood Count 7.4 K/mm3 (4.4-11.0)
[2021-09-10 05:49] LABS: Differential Indicated SCAN CRITERIA MET
[2021-09-10 06:03] LABS: International Normalized Ratio 1.4; Prothrombin Time (Protime)PT. 16.6 SECONDS (11.7-14.9)
[2021-09-10 06:13] LABS: Differential Comment SCANNED
[2021-09-10 06:23] LABS: ALB/GLOB Ratio 0.8 RATIO (0.9-2.4); AST(SGOT) 8 U/L (15-37); Alanine Aminotransfer ALT/SGPT 8 U/L (13-56); Albumin, Serum 2.5 g/dL (3.2-5.0); Alkaline Phosphatase 124 U/L (45-117); Anion Gap 8 (5-15); BUN 53 mg/dL (7-18); BUN/Creat Ratio 27.6 RATIO (10-20); Calcium,Total 7.6 mg/dL (8.5-10.1); Chloride 100 mmol/L (98-107); Creatinine, Serum 1.92 mg/dL (0.55-1.02); EST Glomerular Filtration Rate 28 mL/min (>60); Est Glom Filt Rate - Afr Amer 34 mL/min (>60); Estimated Creatinine Clearance 21.82 ml/min; Globulin 3.1 g/dL (2.2-4.2); Glucose 168 mg/dL (74-106); Potassium 3.8 mmol/L (3.5-5.1); Protein, Total 5.6 g/dL (6.4-8.2); Sodium Level 132 mmol/L (136-145)
[2021-09-10] MEDS: Insulin Lispro 100 UNIT/ML INSULN.PEN SC ×2 (08:06→10:55)
[2021-09-10] MEDS: Ferrous Sulfate 325 MG Tablet PO (08:07)
[2021-09-10] MEDS: Cyanocobalamin 500 MCG Tablet 1000 MCG PO (08:07)
[2021-09-10] MEDS: Venlafaxine XR 75 MG Capsule PO (08:07)
[2021-09-10] MEDS: Pantoprazole Sodium 40 MG Tablet PO (08:07)
[2021-09-10] MEDS: Midodrine HCl 5 MG Tablet 10 MG PO ×2 (08:07→11:48)
[2021-09-10] MEDS: Enoxaparin 30 MG/0.3 ML Syringe SC (08:08)
[2021-09-10 08:21] LABS: Bedside Glucose 159 mg/dL (70-110)
--- NOTE | 2021-09-10 09:14 | CASEMGMT ---
Addendum entered by Suzanne Oliveira 09/10/21 09:47: Per Dr. Fitzgerald, pt will now be hospice referral. E-mail to palliative regarding same. Carmen DOMINGUEZ CM Original Note: Dr. Fitzgerald would like palliative referral for pt for cirrhosis. Order placed by Dr. Fitzgerald and referral e-mailed to palliative. Carmen DOMINGUEZ CM
--- NOTE | 2021-09-10 09:45 | CASEMGMT ---
ALBERTO BILL [employer] CM to room to meet with patient for initial transition planning/care coordination assessment. ALBERTO BILL introduced self and role at [facility]. Pt voices understanding and consents to assessment at this time. Pt resting in bed in no distress at this time. Pt is A/O at this time and answers all questions appropriately. Noted pt forgetful and not able to provide all information at this time. PCP: Dr Amy Reyes Specialists: Pt states she sees several specialists and is not able to recall their names at this time. Preferred Pharmacy: [facility] Retail Insurance: [facility] Prescription Benefit: I'm not sure LNOK: , [place]. Pt states they do not have any children. Living Arrangements: Lives w/, Herson, 2 nephews, and pt's brother. They live in a ranch-style home w/3-4 steps to enter. Pt states she does not go to the basement. Pt states has been weak and has been becoming more difficult doing ADL's. Nephews do most home mgmt tasks, such as cooking/grocery shopping and laundry. Transportation: 2 nephews provide transportation. DME: Pt has a functioning glucometer and walker. HHC/SNF: Active w/[facility] HHC. PLAN: TBD. Hospice has just been consulted. Clement CHANDLER RN, CM
--- NOTE | 2021-09-10 10:00 | WOUNDNOTE ---
Was asked by nursing to assess abdomen for dressing recommendations. patient had a recent large volume paracentesis at another facility and has been leaking a large amount of fluid from the umbilical area. patient had approx 5 ABD pads and are all saturated with serous fluid. abdomen is slightly distended and tender. there is leakage noted from the umbilicus. the abdominal skin is intact. cleansed area with soap and water. pat dry. applied a 1 piece flat Alger appliance around the umbilicus to hopefully better contain the drainage and keep the drainage off the skin. pt tolerated well. will monitor.
[2021-09-10 11:00] LABS: Bedside Glucose 225 mg/dL (74-106)
--- NOTE | 2021-09-10 12:00 | CASEMGMT ---
Physician requested Hospice be consulted for patient. SW contacted Hospice regarding referral. They are aware of patient and they were just waiting on SW to let them know d/c plan. SW received a call from Robyn with Hospice and Blessing will be over to talk with patient. Cynthia Han [employer] [facility]
--- NOTE | 2021-09-10 12:04 | PN.HOSP_ITS ---
Subjective Subjective Per discussion with the patient she has had liver issues for a long time and was biopsied a long time ago. She is unable to remember exactly which hospital did the biopsy. She had followed up previously in [place] with GI but has not done so in a long time. She lives at home with her and 2 nephews and does indicate that they help take care of her. She had persistent oozing of ascitic fluid out of her umbilicus first some time now. It sounds like 8 days ago a AN 8 L paracentesis was performed in [place]. She indicates to me that hospice was supposed to meet her at her house at some point this week however is unable to give me specifics. I did confirm with case management that hospice was aware of her but that is all that is clear at this time. The patient is agreeable to hospice conversation and I did inform her we will place a consult. Objective Data Objective Data Vital Signs: Vital Signs Temp Pulse Resp BP Pulse Ox 98.5 F 89 18 105/65 99 09/10/21 10:15 09/10/21 10:15 09/10/21 10:15 09/10/21 10:15 09/10/21 10:15 Oxygen Delivery Method Room Air Weight: 52.3 kg Body Mass Index (BMI) 22.1 Intake & Output: Intake and Output for Last 24 Hours 09/08/21 09/09/21 09/10/21 23:59 23:59 23:59 Intake Total 440 / 440 451.00 / 451.00 Balance 440 / 440 451.00 / 451.00 Medical Nutrition Assessment Dietitian: Malnutrition Criteria Met Start: 09/10/21 10:45 Freq: Status: Active Protocol: Document 09/10/21 10:45 AG (Rec: 09/10/21 10:45 [id number]) Nutrition Malnutrition Evidence of Malnutrition Exists Yes Malnutrition (severe): Chronic Evidenced By Suboptimal Energy Intake ( Severe),Weight Loss (Severe), Physical Changes (Moderate) Clinical Problem Chronic Disease or Condition Related Malnutrition Etiology severe, chronic malnutrition r /t inadequate energy intake Signs/Symptoms as evidenced by unintentional wt loss of 29.7#/20% <3 months ; estimated PO intake meeting <75% of estimated energy needs >3 months; muscle wasting/fat loss evident in temporal, clavicle, and acromion areas. Status Active Problem Recommendation Dietitian Recommendations/Changes will change diet to regular and add magic cup BID for additional calories/protein d/ t malnutrition. Lab / Micro Data Result Diagrams: 09/10/21 05:29 09/10/21 05:29 Labs: Laboratory Results - last 24 hr 09/09/21 11:50: WBC 8.4, RBC 3.37 L, Hgb 8.3 L, Hct 26.1 L, MCV 77.4 L, MCH 24.6 L, MCHC 31.8 L, RDW Std Deviation 46.1 H, RDW Coeff of Elzbieta 16.4 H, Plt Count 180, MPV 9.8, Immature Gran % (Auto) 0.500, Neut % (Auto) 88.1 H, Lymph % (Auto) 2.3 L, Trinity % (Auto) 6.0, Eos % (Auto) 3.0, Baso % (Auto) 0.1, Absolute Neuts (auto) 7.4, Absolute Lymphs (auto) 0.19 L, Nucleated RBC % 0 09/09/21 11:50: Sodium 133 L, Potassium 3.5, Chloride 99, Carbon Dioxide 27.0, Anion Gap 7, BUN 53 H, Creatinine 1.86 H, Estim Creat Clear Calc 22.53, Est GFR (MDRD) Af Amer 35 L, Est GFR (MDRD) Non-Af 29 L, BUN/Creatinine Ratio 28.5 H, Glucose 135 H, Calcium 7.2 L, Total Bilirubin 0.80, AST 11 L, ALT 9 L, Alkaline Phosphatase 158 H, Total Protein 4.8 L, Albumin 1.3 L, Globulin 3.5, Albumin/Globulin Ratio 0.4 L 09/09/21 11:50: Lactic Acid 1.6 09/09/21 17:13: POC Glucose 155 H 09/09/21 20:59: POC Glucose 232 H 09/10/21 05:29: WBC 7.4, RBC 3.31 L, Hgb 8.3 L, Hct 25.7 L, MCV 77.6 L, MCH 25.1 L, MCHC 32.3, RDW Std Deviation 44.8 H, RDW Coeff of Elzbieta 15.9 H, Plt Count 171, MPV 9.7, Immature Gran % (Auto) 0.800, Neut % (Auto) 87.2 H, Lymph % (Auto) 3.1 L, Trinity % (Auto) 5.4, Eos % (Auto) 3.4, Baso % (Auto) 0.1, Absolute Neuts (auto) 6.5, Absolute Lymphs (auto) 0.23 L, Nucleated RBC % 0, Differential Comment SCANNED 09/10/21 05:29: PT 16.6 H, INR 1.4 09/10/21 05:29: Sodium 132 L, Potassium 3.8, Chloride 100, Carbon Dioxide 24.0, Anion Gap 8, BUN 53 H, Creatinine 1.92 H, Estim Creat Clear Calc 21.82, Est GFR (MDRD) Af Amer 34 L, Est GFR (MDRD) Non-Af 28 L, BUN/Creatinine Ratio 27.6 H, Glucose 168 H, Calcium 7.6 L, Total Bilirubin 1.30 H, AST 8 L, ALT 8 L, Alkaline Phosphatase 124 H, Total Protein 5.6 L, Albumin 2.5 L, Globulin 3.1, Albumi n/Globulin Ratio 0.8 L 09/10/21 08:05: POC Glucose 159 H 09/10/21 10:54: POC Glucose 225 H Physical Exam Const alert Constitutional Narrative: Extremely cachectic appearing upper middle-aged white female who appears much older than stated age, lying in bed in right side-lying appears extremely weak but nontoxic Exam Limitations: no limitations Nutritional Appearance: cachectic HEENT head/scalp atraumatic and moist oral mucous membranes HEENT Narrative: Acne skin temporal wasting with prominence of bilateral zygomatic arches, thin neck, edentulous, Mallampati is 1-2 Head and Scalp: normocephalic Eyes Eyes Narrative: No scleral icterus Resp normal respiratory effort, no retractions, no use of accessory muscles and clear to auscultation bilaterally Resp Narrative: Diffusely diminished but clear Auscultation: Negative for crackles, rales, rhonchi or wheezes Cardio regular rate, regular rhythm, S1 normal heart sound, S2 normal heart sound, no murmurs, no rub, no gallops, no clicks and no JVD GI soft to palpation GI Narrative: Markedly distended abdomen, umbilical hernia with drainage of ascitic fluid centrally from her umbilical hernia-suspect presence of fistula, mild diffuse tenderness, bowel sounds are normal Extremity no clubbing, cyanosis or edema Extremity Narrative: Severely decreased lean muscle mass Peripheral Pulses: Yes pulses 2+ throughout Skin no jaundice Neuro oriented x3, CN's II-XII intact bilaterally, moves all extremities, no focal motor deficits and no sensory deficits noted Neuro Narrative: Severe generalized weakness but no focal deficits Sensorium / Orientation: awake and alert Speech: speech normal Psych affect normal Assessment & Plan Assessment/Plan (1) SHELIA (acute kidney injury): (2) Hypotension: (3) Abnormal weight loss: (4) Severe protein-calorie malnutrition: (5) Hyponatremia: PLAN: Ascites secondary to chronic liver failure with cirrhosis -Believed to be related to Mae -Patient reports biopsy done remotely a long time ago at outside facility -Has not followed with GI in some time-->Used to follow in [place] -Records requested but not yet available -Patient indicates she was diagnosed about 20 years ago -Patient is draining spontaneously through her umbilicus -Ostomy bag was placed around this to collect fluid and avoid maceration of surrounding tissue -Wound care nurses following -Hold Lasix, Aldactone with low blood pressures -Discussed case with gastroenterology and overall prognosis is poor -Indicates hospice was to come to her house this week -We will continue octreotide as ordered at this time -Hold on any other invasive procedures until goals of care are more clarified -Hospice consult in place -Gastroenterology following-appreciate input Hypotension -Likely related to liver disease -Hold Lasix, carvedilol, losartan, Aldactone -Continue midodrine Suspected SHELIA -Signs serum creatinine is unknown -Serum creatinine is trending up despite treatment -Suspect hepatorenal syndrome -We will hold off on any further work-up at this time given plans for hospice consult -We will work-up further if goals of care change Hyponatremia -Suspect hypervolemic hyponatremia given ascites -Anticipate this is chronic -Not severe -Continue to monitor Chronic microcytic anemia -Hemoglobin is stable -Appears that this has been a chronic issue for her -No signs of acute bleeding -Continue to trend -Continue Protonix -Continue iron supplementation Severe malnutrition -Dietitian is consulted -Oral supplements History of CAD -No records in our system -Record request in place from outside facility -Hold carvedilol, losartan, Aldactone -If patient's goals of care change and she wants to be having more aggressive ca re will recommend echocardiogram -Continue Plavix and aspirin Depression/anxiety -Continue trazodone -Continue Cymbalta Tobacco abuse -Recommend tobacco cessation -Nicotine patch available if needed DVT prophylaxis -Enoxaparin daily CODE STATUS -DNR CCA with intubation--> intubation would only be short-term Charges/Coding Visit Charges Inpatient E&M: 71564 Subs Hosp L2
--- NOTE | 2021-09-10 13:26 | PCM.DC.SUM ---
Providers Date of Admission: 09/09/21 Date of Discharge: 09/10/21 Primary Care Physician: Dr. Amy Reyes, DO Consultations 09/09/21 14:52 Consult: Gastroenterology Routine Consulting Provider: [facility] Reason for Consult: ascites EMERGENT Consult: No Notified: Yes Date Notified: 09/09/21 Time Notified: 13:44 Method of Notification: Verbal 09/10/21 07:37 Consult: Hospice / Palliative Care Routine Consulting Provider: [facility] Reason for Consult: cirrhosis EMERGENT Consult: No Notified: Yes Date Notified: 09/10/21 Time Notified: 12:00 Method of Notification: phone 09/10/21 09:43 Consult: Onc/Wound/hospice volunteer coordinator Routine Comment: Reason for Consult:: ascites fluid seeping Reason For Visit: ASCITES, HYPOTENSION Diagnosis Discharge Diagnosis (1) SHELIA (acute kidney injury): Status: Acute Code(s): N17.9 - Acute kidney failure, unspecified (2) Hypotension: Status: Acute Code(s): I95.9 - Hypotension, unspecified (3) Abnormal weight loss: Status: Acute Code(s): R63.4 - Abnormal weight loss (4) Severe protein-calorie malnutrition: Status: Acute Code(s): E43 - Unspecified severe protein-calorie malnutrition (5) Hyponatremia: Status: Acute Code(s): E87.1 - Hypo-osmolality and hyponatremia Medications at Discharge Home Medications venlafaxine 75 mg PO DAILY 09/05/21 melatonin 3 mg PO QHS 09/09/21 pantoprazole 40 mg PO DAILY 09/09/21 quetiapine 50 mg PO QHS 09/09/21 trazodone 100 mg PO QHS 09/09/21 Hospital Course Operations None Procedures None Summary of Care Provided Minutes Spent on Discharge: 45 Hospital Course: Mrs. Marie is a 60-year-old white female who presented to the emergency department at [facility] on 09/09/2021 with hypotension and umbilical ascitic fluid leaking. The patient had a known history of cirrhosis that was diagnosed per her report approximately 20 years ago. She had a liver biopsy done at an outside facility and used to follow-up with gastroenterology in the past and [place], [place] but indicated she had not been following up as of recently. She evidently had a paracentesis that was done at [facility] approximately 8 days ago and was discharged home. She reports that was for approximately 8+ liters of fluid. It is unclear whether she received albumin and at that time. She then presented to our emergency department on 09/06/2021 because she heard a faucet running but this was actually fluid leaking out of her abdomen. The fluid leakage is actually out of her umbilicus at that time and she was discharged home in stable condition. She unfortunately represented yesterday with hypotension and admission was requested. She was seen by gastroenterology and they initiated octreotide, albumin, and midodrine. Her blood pressures did fluctuate during her hospitalization and were as low as 77/54 and as high as 105/65. The higher numbers were after she was initiated on midodrine however. Her labs revealed a chronic microcytic anemia for which she was on iron supplementation at baseline, hyponatremia, and elevated BUN/creatinine with an unknown baseline however her renal function did get worse during her hospital course and on discharge her serum creatinine was 1.92. It is suspected that she is suffering from hepatorenal syndrome. Her coags were slightly elevated but still within normal range at an INR of 1.4. Her bilirubin was mildly elevated 1.3. Her total albumin was 2.5. The patient had persistent leaking of ascitic appearing fluid that was quite voluminous from her umbilicus during her hospital course and an ostomy bag was placed to catch the drainage and prevent skin breakdown. She was evaluated by wound care. After extensive discussion with the patient, she did reveal that hospice was to come to her house this week and discuss things with her. She wished to proceed with comfort measures as she realized her liver disease was quite progressed and hospice was therefore consulted during this hospitalization given her overall poor prognosis as she was agreeable to comfort measures. It has been arranged for her to get hospice at home. She lives with her , and 2 nephews that are able to help care for her. She was discharged home with hospice on 09/10/2021. 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 Hypotension SHELIA secondary to hepatorenal syndrome Hyponatremia Chronic microcytic anemia Severe malnutrition CAD Depression Anxiety Tobacco abuse Medical Records Data Medical Nutrition Assessment Dietitian: Malnutrition Criteria Met Start: 09/10/21 10:45 Freq: Status: Active Protocol: Document 09/10/21 10:45 AG (Rec: 09/10/21 10:45 [id number]) Nutrition Malnutrition Evidence of Malnutrition Exists Yes Malnutrition (severe): Chronic Evidenced By Suboptimal Energy Intake ( Severe),Weight Loss (Severe), Physical Changes (Moderate) Clinical Problem Chronic Disease or Condition Related Malnutrition Etiology severe, chronic malnutrition r /t inadequate energy intake Signs/Symptoms as evidenced by unintentional wt loss of 29.7#/20% <3 months ; estimated PO intake meeting <75% of estimated energy needs >3 months; muscle wasting/fat loss evident in temporal, clavicle, and acromion areas. Status Active Problem Recommendation Dietitian Recommendations/Changes will change diet to regular and add magic cup BID for additional calories/protein d/ t malnutrition. Weight / BMI Weight Weight: 52.3 kg Body Mass Index (BMI) 22.1 ABG / Lab / Microbiology Data Result Diagrams: 09/10/21 05:29 09/10/21 05:29 Laboratory: Laboratory Results - last 24 hr 09/09/21 17:13: POC Glucose 155 H 09/09/21 20:59: POC Glucose 232 H 09/10/21 05:29: WBC 7.4, RBC 3.31 L, Hgb 8.3 L, Hct 25.7 L, MCV 77.6 L, MCH 25.1 L, MCHC 32.3, RDW Std Deviation 44.8 H, RDW Coeff of Elzbieta 15.9 H, Plt Count 171, MPV 9.7, Immature Gran % (Auto) 0.800, Neut % (Auto) 87.2 H, Lymph % (Auto) 3.1 L, Randall % (Auto) 5.4, Eos % (Auto) 3.4, Baso % (Auto) 0.1, Absolute Neuts (auto) 6.5, Absolute Lymphs (auto) 0.23 L, Nucleated RBC % 0, Differential Comment SCANNED 09/10/21 05:29: PT 16.6 H, INR 1.4 09/10/21 05:29: Sodium 132 L, Potassium 3.8, Chloride 100, Carbon Dioxide 24.0, Anion Gap 8, BUN 53 H, Creatinine 1.92 H, Estim Creat Clear Calc 21.82, Est GFR (MDRD) Af Amer 34 L, Est GFR (MDRD) Non-Af 28 L, BUN/Creatinine Ratio 27.6 H, Glucose 168 H, Calcium 7.6 L, Total Bilirubin 1.30 H, AST 8 L, ALT 8 L, Alkaline Phosphatase 124 H, Total Protein 5.6 L, Albumin 2.5 L, Globulin 3.1, Albumin/Globulin Ratio 0.8 L 09/10/21 08:05: POC Glucose 159 H 09/10/21 10:54: POC Glucose 225 H D/C Instructions Discharge Diet: No restrictions Discharge Activity: Return to Normal Activity Meaningful Use Info Meaningful Use Diagnoses (Choose all that apply): None applicable Discharge Plan Admission Admit Date/Time: 09/09/21 13:42 Primary Reason for Your Visit: hypotension Attending Provider: Lamar Fitzgerald Primary Care Provider: Aym Reyes Consulting Providers: Dulce Maria Beltran ; Angel Cano ; Tiffanie Smith ; Yvonne Barragan ; Deena Birch ; Sophie Turner [employer] Discharge Orders/Prescriptions Prescriptions: Continued venlafaxine 75 mg capsule,extended release 24hr 75 mg PO DAILY RF: 0 melatonin 3 mg tablet 3 mg PO QHS RF: 0 trazodone 100 mg tablet 100 mg PO QHS RF: 0 pantoprazole 40 mg tablet,delayed release (DR/EC) 40 mg PO DAILY RF: 0 quetiapine 50 mg tablet 50 mg PO QHS RF: 0 Discontinued aspirin 81 MG tablet,chewable 81 mg PO DAILY@0800 RF: 0 furosemide 20 MG tablet 20 mg PO DAILY RF: 0 carvedilol 6.25 mg tablet 6.25 mg PO BID RF: 0 clopidogrel 75 mg tablet 75 mg PO DAILY RF: 0 ferrous sulfate 325 mg (65 mg iron) tablet 325 mg PO QODAY RF: 0 losartan 25 mg tablet 12.5 mg PO DAILY RF: 0 cyanocobalamin (vitamin B-12) 1,000 mcg tablet 1,000 mcg PO DAILY RF: 0 spironolactone 25 mg tablet 25 mg PO DAILY RF: 0 Referrals / Follow Up: Amy Reyes DO [Primary Care Provider] - Disposition Disposition (needs filled in before D/C Order can be placed): Hospice in Home Charges/Coding Visit Charges Inpatient E&M: 72057 Disch Hosp
--- NOTE | 2021-09-10 13:58 | CASEMGMT ---
Blessing from Hospice arrived at [facility]. Hospice papers were signed. SW notified physician and she will send patient today. SW notified Blessing patient will go today. SW will arrange transport and notify Hospice of brain picker time. Cynthia FERREIRA
--- NOTE | 2021-09-10 14:28 | CASEMGMT ---
SW spoke with patient and confirmed she plans on going home on Hospice and she needs transportation. SW called patient's and let him know that patient spoke with Hospice today and signed papers. IVET explained that patient will be coming home today. Patient's said he cannot transport. IVET arranged for patient to get picked up at 330 via cot by [facility]. IVET notified patient's , Robyn at Hospice, and RN. Plan: Home on [facility]. [facility] transported via cot. Cynthia FERREIRA
--- NOTE | 2021-09-10 15:03 | DCINST_ITS ---
Discharge Instructions Diet Discharge Diet: No restrictions Activity Discharge Activity: Return to Normal Activity Follow Up Care Test Results: Test results from this visit will be discussed in further detail at your follow-up appointment, if applicable. Discharge Plan Admission Admit Date/Time: 09/09/21 13:42 Primary Reason for Your Visit: hypotension Attending Provider: Lamar Fitzgerald Primary Care Provider: Amy Reyes Consulting Providers: Dulce Maria Beltran ; Angel Cano ; Tiffanie Smith ; Yvonne Barragan ; Deena Birch ; Sophie Turner [employer] Discharge Orders/Prescriptions Prescriptions: Continued venlafaxine 75 mg capsule,extended release 24hr 75 mg PO DAILY RF: 0 melatonin 3 mg tablet 3 mg PO QHS RF: 0 trazodone 100 mg tablet 100 mg PO QHS RF: 0 pantoprazole 40 mg tablet,delayed release (DR/EC) 40 mg PO DAILY RF: 0 quetiapine 50 mg tablet 50 mg PO QHS RF: 0 Discontinued aspirin 81 MG tablet,chewable 81 mg PO DAILY@0800 RF: 0 furosemide 20 MG tablet 20 mg PO DAILY RF: 0 carvedilol 6.25 mg tablet 6.25 mg PO BID RF: 0 clopidogrel 75 mg tablet 75 mg PO DAILY RF: 0 ferrous sulfate 325 mg (65 mg iron) tablet 325 mg PO QODAY RF: 0 losartan 25 mg tablet 12.5 mg PO DAILY RF: 0 cyanocobalamin (vitamin B-12) 1,000 mcg tablet 1,000 mcg PO DAILY RF: 0 spironolactone 25 mg tablet 25 mg PO DAILY RF: 0 Referrals / Follow Up: Amy Reyes DO [Primary Care Provider] - Disposition Disposition (needs filled in before D/C Order can be placed): Hospice in Home
== END 2021-09-10 15:30 | disposition hospice, home (50) | DRG 441 ==
LOC: ED 14:10 → PCU 14:11
PROVIDERS: Emergency Provider Emergency Medicine; PCP Family Medicine; Visit Provider Internal Medicine
DX: K72.10 Chronic hepatic failure without coma (principal); K76.7 Hepatorenal syndrome; E43 Unspecified severe protein-calorie malnutrition; N17.9 Acute kidney failure, unspecified; R18.8 Other ascites; E87.1 Hypo-osmolality and hyponatremia; I95.9 Hypotension, unspecified; E11.9 Type 2 diabetes mellitus without complications; J44.9 Chronic obstructive pulmonary disease, unspecified; I10 Essential (primary) hypertension; D50.9 Iron deficiency anemia, unspecified; K75.81 Nonalcoholic steatohepatitis (NASH); F41.9 Anxiety disorder, unspecified; I25.10 Atherosclerotic heart disease of native coronary artery without angina pectoris; F17.210 Nicotine dependence, cigarettes, uncomplicated; F32.A Depression, unspecified; R63.4 Abnormal weight loss; Z66 Do not resuscitate; Z68.21 Body mass index [BMI] 21.0-21.9, adult; Z79.899 Other long term (current) drug therapy
CPT/HCPCS: 36415; 80053; 82962; 83605; 85025; 85610; 97802; 99285; J7030; P9047; A4216